=== PATIENT | male | born 1950 | race Caucasian/White ===

== ENCOUNTER 2016-11-05 18:10 | Inpatient (IN) | payer MEDICARE, OTHER ==
[~2016-11-05] VITALS: Ht 167.6 cm; Wt 65.9 kg
[2016-11-05] MEDS ORDERED: SOD CHLORIDE 0.9% 1,000 ML IV STA (19:04)
[2016-11-05 19:22] LABS: ADD SCAN DIFF NO
[2016-11-05 19:24] LABS: BASOPHIL # 0.1 10^3/ul (0.0-0.1); BASOPHILS % 0.6 % (0.0-2.0); EOSINOPHILS # 0.2 10^3/ul (0.0-0.5); EOSINOPHILS % 2.5 % (0.0-7.0); HEMATOCRIT 42.5 % (42.0-52.0); HEMOGLOBIN 14.4 g/dl (14.0-18.0); LYMPHOCYTES # 2.5 10^3/ul (0.8-2.9); LYMPHOCYTES % 28.1 % (15.0-51.0); MEAN CORPUSCULAR HEMOGLOBIN 30.1 pg (29.0-33.0); MEAN CORPUSCULAR HGB CONC 33.9 g/dl (32.0-37.0); MEAN CORPUSCULAR VOLUME 88.9 fl (82.0-101.0); MEAN PLATELET VOLUME 10.3 fl (7.4-10.4); MONOCYTES % 10.7 % (0.0-11.0); NEUTROPHIL # 5.2 10^3/ul (1.6-7.5); NEUTROPHILS % 57.8 % (39.0-77.0); PLATELET COUNT 200 10^3/UL (140-415); RED BLOOD COUNT 4.78 10^6/ul (4.70-6.10); RED CELL DISTRIBUTION WIDTH 13.2 % (11.5-14.5); WHITE BLOOD COUNT 8.9 10^3/ul (4.8-10.8)
[2016-11-05] MEDS ORDERED: ONDANSETRON 4 MG INJ IV PRN (19:30)
[2016-11-05] MEDS ORDERED: ACETAMINOPHEN 325 MG TAB PO PRN (19:30)
[2016-11-05 19:36] LABS: ALBUMIN 4.2 g/dl (3.3-4.9); CHLORIDE 99 mmol/L (97-110); POTASSIUM 3.6 mmol/L (3.5-5.1); SODIUM 138 mmol/L (135-144)
[2016-11-05 19:38] LABS: CREATININE 0.64 mg/dl (0.61-1.24)
[2016-11-05 19:39] LABS: ALANINE AMINOTRANSFERASE 97 IU/L (13-69); ALBUMIN/GLOBULIN RATIO 0.93; ALKALINE PHOSPHATASE 89 IU/L (42-121); ANION GAP 17 (8-16); ASPARTATE AMINO TRANSFERASE 53 IU/L (15-46); BILIRUBIN,INDIRECT 0.3 mg/dl (0-1.1); BILIRUBIN,TOTAL 0.3 mg/dl (0.2-1.3); BLOOD UREA NITROGEN 16 mg/dl (7-20); CARBON DIOXIDE 26 mmol/L (21-31); GLUCOSE 124 mg/dl (70-220); TOTAL PROTEIN 8.7 g/dl (6.1-8.1)
[2016-11-05 19:49] LABS: INR 0.97; PROTIME 12.9 Sec (12.2-14.2)
[2016-11-05 20:02] LABS: TROPONIN-I < 0.012 ng/ml (0.00-0.12)
[2016-11-05] MEDS ORDERED: AMLO5TAB4 PO (20:14)
[2016-11-05] MEDS ORDERED: ASPI-664 PO (20:15)
[2016-11-05] MEDS ORDERED: ASC500 PO (20:15)
[2016-11-05] MEDS ORDERED: ATOR80TA75 PO (20:15)
[2016-11-05] MEDS ORDERED: CARV6.2579 PO (20:16)
[2016-11-05] MEDS ORDERED: GABA100C14 PO (20:17)
[2016-11-05] MEDS ORDERED: DOCU-144 PO (20:17)
[2016-11-05] MEDS ORDERED: MAGN400O4 PO (20:18)
[2016-11-05] MEDS ORDERED: LACT10SO5 PO (20:18)
[2016-11-05] MEDS ORDERED: METH10TA2 PO (20:19)
[2016-11-05] MEDS ORDERED: NALO25TA PO (20:19)
[2016-11-05] MEDS ORDERED: HYDR-902 PO (20:20)
[2016-11-05] MEDS ORDERED: SENN-53 PO (20:21)
[2016-11-05] MEDS ORDERED: MULTI PO (20:21)
[2016-11-05 20:37] VITALS: BP 140/80; RESP 18
[2016-11-05 20:44] LABS: PARTIAL THROMBOPLASTIN TIME 27.1 Sec (25.0-35.0)
--- NOTE | 2016-11-05 21:10 | RADRPT ---
PROCEDURE: XR Chest. CLINICAL INDICATION: Chest pain. Abdominal pain TECHNIQUE: Portable AP upright view of the chest was obtained. COMPARISON: 06/19/2016 FINDINGS: The cardiomediastinal silhouette is within normal limits. The lungs are clear of acute infiltrates, mild diffuse interstitial changes are stable compared to the previous study. There is no evidence for pleural effusion, pneumothorax or pulmonary vascular congestion. Old healed left posterior 7th rib fractures again noted. There is no evidence of acute osseous abnormality. Calcification is agai n visible within the aorta. RPTAT:HJJR IMPRESSION: 1. Mild chronic interstitial changes of the lungs without evidence of acute intrathoracic abnormali ty. 2. Old healed posterior left seventh rib fracture. 3. Aortic atherosclerosis is present. Physician Matthew Date Time Electronically viewed and signed by Physician Matthew on 11/05/2016 21:09 JR/
--- NOTE | 2016-11-05 21:54 | ERA ---
ER Documentation Chief Complaint Date/Time DATE: 11/05/16 TIME: 21:51 Chief Complaint sent by pmd for grave disability HPI Patient is a 66-year-old male with Alzheimer's dementia, peripheral vascular disease, and hypertension who presents for failure to thrive. The patient was sent by Dr. Dale. The patient has been in and out of the hospital within the past 6 months. The patient was at home for the last 48 hours and lives alone. He was unable to take care of himself and has been soiling his bed sheets per the daughter. The daughter checked on him and found that he was not taking care of himself and he said that he needed to go to the hospital. They called Dr. Dale who told him to go for admission. The patient has had no fevers. He does take methadone. Upon review of old medical records this the patient's eighth visit to the ER since 2009. ROS All systems reviewed and are negative except as per history of present illness. Medications Home Meds Reported Medications Multivitamins* (Theragran*) 1 Tab Tab, 1 TAB PO DAILY, TAB 11/05/16 Sennosides* (Senna Lax*) 8.6 Mg Tablet, 2 TAB PO QHS, TAB 11/05/16 Hydrocodone/Acetaminophen ([place] 10-325 Tablet) 1 Each Tablet, 1 EACH PO Q4H, TAB 11/05/16 Naloxegol Oxalate (Movantik) 25 Mg Tablet, 25 MG PO DAILY, TAB 11/05/16 Methadone Hcl* (Methadone*) 10 Mg Tab, 10 MG PO DAILY, TAB 11/05/16 Magnesium Hydroxide* (Milk Of Magnesia*) 400 Mg/5 Ml Oral.susp, 30 ML PO Q24H for CONSTIPATION, ML 11/05/16 Lactulose* (Lactulose*) 10 Gm/15 Ml Solution, 10 GM PO Q24, ML 11/05/16 Gabapentin* (Gabapentin*) 100 Mg Capsule, 100 MG PO TID, #90 CAP 11/05/16 Docusate Sodium* (Colace*) 100 Mg Capsule, 100 MG PO Q12, #60 CAP 11/05/16 Carvedilol* (Carvedilol*) 6.25 Mg Tablet, 6.25 MG PO BID, #60 TAB 11/05/16 Atorvastatin* (Atorvastatin*) 80 Mg Tablet, 80 MG PO QHS, #30 TAB 11/05/16 Aspirin* (Aspirin* EC) 81 Mg Tablet.dr, 81 MG PO DAILY, TAB 11/05/16 Ascorbic Acid (Vitamin C) 500 Mg Tab, 500 MG PO DAILY, TAB 11/05/16 Amlodipine Besylate* (Norvasc*) 5 Mg Tablet, 5 MG PO DAILY, TAB 11/05/16 Allergies Allergies: Coded Allergies: No Known Drug Allergy (Verified Allergy, Unknown, 11/05/16) PMhx/Soc History of Surgery: Yes (LAK AMPUTATION 06/11) Anesthesia Reaction: No Hx Neurological Disorder: No Hx Respiratory Disorders: No Hx Cardiac Disorders: Yes (HTN,CAD, ) Hx Psychiatric Problems: Yes (ANXIETY/DEPRESSION, ) Hx Miscellaneous Medical Probl: Yes (HEP-C, MRSA) Hx Alcohol Use: Yes Hx Substance Use: Yes Hx Tobacco Use: Yes (HEAVY SMOKER) Smoking Status: Current every day smoker FmHx Family History: No diabetes Physical Exam Vitals Vital Signs Date Time Temp Pulse Resp B/P Pulse Ox O2 Delivery O2 Flow Rate FiO2 11/05/16 18:24 99.0 78 20 149/69 95 Physical Exam Const: No acute distress Head: Atraumatic Eyes: Normal Conjunctiva ENT: Normal External Ears, Nose and Mouth. Neck: Full range of motion..~ No meningismus. Resp: Clear to auscultation bilaterally Cardio: Regular rate and rhythm, no murmurs Abd: Soft, non tender, non distended. Normal bowel sounds Skin: No petechiae or rashes Back: No midline or flank tenderness Ext: Previous left lower extremity amputation Neur: Awake and alert, early dementia Psych: Normal Mood and Affect Result Diagram: 11/05/16191411/05/161914 Results 24 hrs Laboratory Tests Test 11/05/16 19:15 White Blood Count 8.910^3/ul Red Blood Count 4.7810^6/ul Hemoglobin 14.4g/dl Hematocrit 42.5% Mean Corpuscular Volume 88.9fl Mean Corpuscular Hemoglobin 30.1pg Mean Corpuscular Hemoglobin Concent 33.9g/dl Red Cell Distribution Width 13.2% Platelet Count 65610^3/UL Mean Platelet Volume 10.3fl Neutrophils % 57.8% Lymphocytes % 28.1% Monocytes % 10.7% Eosinophils % 2.5% Basophils % 0.6% Nucleated Red Blood Cells % 0.0/100WBC Neutrophils # 5.210^3/ul Lymphocytes # 2.510^3/ul Monocytes # 1.010^3/ul Eosinophils # 0.210^3/ul Basophils # 0.110^3/ul Nucleated Red Blood Cells # 0.010^3/ul Prothrombin Time 12.9Sec Prothrombin Time Ratio 1.0 INR International Normalized Ratio 0.97 Activated Partial Thromboplast Time 27.1Sec Sodium Level 138mmol/L Potassium Level 3.6mmol/L Chloride Level 99mmol/L Carbon Dioxide Level 26mmol/L Anion Gap 17 Blood Urea Nitrogen 16mg/dl Creatinine 0.64mg/dl Glucose Level 124mg/dl Calcium Level 9.0mg/dl Total Bilirubin 0.3mg/dl Direct Bilirubin 0.00mg/dl Indirect Bilirubin 0.3mg/dl Aspartate Amino Transf (AST/SGOT) 53IU/L Alanine Aminotransferase (ALT/SGPT) 97IU/L Alkaline Phosphatase 89IU/L Troponin I < 0.012ng/ml Total Protein 8.7g/dl Albumin 4.2g/dl Globulin 4.50g/dl Albumin/Globulin Ratio 0.93 Lipase 109U/L Current Medications Medications (Trade) Dose Ordered Sig/Ghada Route PRN Reason Start Time Stop Time Status Last Admin Dose Admin Sodium Chloride (NS) 1,000 ml @ 1,000 mls/hr Q1H STAT IV 11/05/16 19:04 11/05/16 20:03 DC 11/05/16 19:17 Procedures/MDM EKG read by me: Rate/Rhythm: Regular rate and rhythm at a normal rate Intervals: Normal Impression: No evidence of ischemia or arrhythmia Smoking Cessation Therapy: Pt. was lectured for greater than 3 minutes on the health risks of continued smoking and the benefits of cessation. Patient is a 66-year-old male with hypertension, Alzheimer's, and peripheral vascular disease who presents for failure to thrive. It sounds like he is unable to live on his own at this time. He will need admission to the hospital. I spoke with Dr. Navarrete who is covering for Dr. Dale. The patient will be admitted to a medical surgical bed. Laboratory studies are basically normal. EKG shows no signs of ischemia. Departure Diagnosis: Primary Impression: Acute weakness Additional Impression: Failure to thrive Qualified Code: R62.7 - Failure to thrive in adult Condition: KENDELL Abbott MD Nov 05, 2016 21:54
[2016-11-05] MEDS: DEXTROSE 5%-0.9% NACL 1,000 ML IV SCH (22:36)
[2016-11-05 23:26] VITALS: Ht 167.6 cm; Wt 65.9 kg
[2016-11-06 05:28] LABS: ADD SCAN DIFF NO
[2016-11-06 05:35] LABS: BASOPHILS % 0.6 % (0.0-2.0); EOSINOPHILS # 0.2 10^3/ul (0.0-0.5); EOSINOPHILS % 3.4 % (0.0-7.0); HEMATOCRIT 37.4 % (42.0-52.0); HEMOGLOBIN 12.7 g/dl (14.0-18.0); LYMPHOCYTES # 1.9 10^3/ul (0.8-2.9); MEAN CORPUSCULAR HEMOGLOBIN 30.1 pg (29.0-33.0); MEAN CORPUSCULAR VOLUME 88.6 fl (82.0-101.0); MEAN PLATELET VOLUME 10.1 fl (7.4-10.4); MONOCYTE # 0.8 10^3/ul (0.3-0.9); MONOCYTES % 11.9 % (0.0-11.0); NEUTROPHIL # 3.5 10^3/ul (1.6-7.5); NEUTROPHILS % 53.8 % (39.0-77.0); PLATELET COUNT 166 10^3/UL (140-415); RED BLOOD COUNT 4.22 10^6/ul (4.70-6.10); RED CELL DISTRIBUTION WIDTH 13.3 % (11.5-14.5); WHITE BLOOD COUNT 6.5 10^3/ul (4.8-10.8)
[2016-11-06 05:56] LABS: CALCIUM 8.4 mg/dl (8.4-10.2); CREATININE 0.57 mg/dl (0.61-1.24)
[2016-11-06 07:34] VITALS: BP 187/92; RESP 20
[2016-11-06] MEDS: DEXTROSE 5%-0.9% NACL 1,000 ML IV SCH (08:52)
[2016-11-06] MEDS ORDERED: HYDROCODONE/APAP (10/325) TAB PO PRN (09:30)
[2016-11-06 09:48] LABS: HAAIG REFLEX REFLEX FILED
[2016-11-06] MEDS: MAGNESIUM HYDROXIDE 30ML CUP PO SCH (11:04)
[2016-11-06 12:06] LABS: HEPATITIS B CORE ANTIBODY REACTIVE (NEGATIVE)
[2016-11-06] MEDS: METHADONE 10 MG TAB PO SCH (12:28)
[2016-11-06] MEDS: GABAPENTIN 100 MG CAP PO SCH ×2 (12:28→21:00)
[2016-11-06 19:25] VITALS: BP 132/78; RESP 20
[2016-11-06] MEDS: SENNA TAB PO SCH (21:00)
[2016-11-06] MEDS: ATORVASTATIN 80 MG TAB PO SCH (21:00)
[2016-11-06] MEDS: DOCUSATE SODIUM 100 MG CAP PO SCH (21:00)
[2016-11-07] MEDS: PANTOPRAZOLE (EC) 40 MG TAB PO SCH (05:54)
[2016-11-07 06:10] LABS: ADD SCAN DIFF NO
[2016-11-07 06:36] LABS: BASOPHILS % 0.5 % (0.0-2.0); EOSINOPHILS # 0.3 10^3/ul (0.0-0.5); EOSINOPHILS % 3.2 % (0.0-7.0); HEMATOCRIT 40.6 % (42.0-52.0); HEMOGLOBIN 13.7 g/dl (14.0-18.0); LYMPHOCYTES # 1.9 10^3/ul (0.8-2.9); LYMPHOCYTES % 21.4 % (15.0-51.0); MEAN CORPUSCULAR HEMOGLOBIN 30.1 pg (29.0-33.0); MEAN CORPUSCULAR HGB CONC 33.7 g/dl (32.0-37.0); MEAN CORPUSCULAR VOLUME 89.2 fl (82.0-101.0); MEAN PLATELET VOLUME 10.9 fl (7.4-10.4); MONOCYTE # 0.9 10^3/ul (0.3-0.9); MONOCYTES % 10.6 % (0.0-11.0); NEUTROPHIL # 5.5 10^3/ul (1.6-7.5); PLATELET COUNT 171 10^3/UL (140-415); RED BLOOD COUNT 4.55 10^6/ul (4.70-6.10); RED CELL DISTRIBUTION WIDTH 13.2 % (11.5-14.5); WHITE BLOOD COUNT 8.7 10^3/ul (4.8-10.8)
[2016-11-07 06:40] LABS: CALCIUM 9.3 mg/dl (8.4-10.2); CREATININE 0.61 mg/dl (0.61-1.24); MAGNESIUM 1.7 mg/dl (1.7-2.5); PHOSPHORUS 5.1 mg/dl (2.5-4.9); POTASSIUM 4.6 mmol/L (3.5-5.1)
[2016-11-07 07:18] VITALS: BP 165/87; RESP 18
--- NOTE | 2016-11-07 07:23 | HP ---
DATE OF ADMISSION: 11/05/2016 CHIEF COMPLAINT: Grave disability, failure to thrive. 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 The patient states he was l iving at home by himself, but was unable to do activities of daily living. The patient has noted to have a decline in his status. As a result, he was brought in to the emergency room for evaluation. Upon arrival, patient had a chest x-ray performed which showed interstitial changes of the lungs w ithout an acute process, old fracture of left 7th rib. The patient had laboratory data drawn. In [facility] emergency room, the patient was placed on IV hydration and admitted to medical/surgery. Overnigh t, the patient has been stable. There have been no reports of hemoptysis, hematemesis or hematochez ia. No chest pain. No dysuria or hematuria. PAST MEDICAL HISTORY: As stated above, history of hepatitis C, history of hypertension, history of coronary artery disease, history of anxiety and depression, history of dementia. PAST SURGICAL HISTORY: Left above-knee amputation. FAMILY HISTORY: Noncontributory. SOCIAL HISTORY: He does not actively drink, smoke or do drugs. MEDICATIONS: The patient's medications have been reviewed and reconciled. ALLERGIES: NO KNOWN DRUG ALLERGIES. REVIEW OF SYSTEMS: A 14-point review of systems was conducted. Pertinent positives stated in the H PI, otherwise negative. PHYSICAL EXAMINATION: VITAL SIGNS: Blood pressure is 180/90, respirations 20, pulse 67, temperature 97.8. HEENT: Head is normocephalic. Pupils are reactive to light. NECK: Supple. HEART: Regular rate. LUNGS: Show diminished breath sounds at the bases. ABDOMEN: Soft, nontender to palpation. No rebound or guarding. EXTREMITIES: Negative for clubbing, cyanosis. No edema on the right leg. Left AK is noted. NEUROLOGIC: No focal deficits. DERMATOLOGIC: No rashes. MUSCULOSKELETAL: No joint effusions. LABORATORY DATA: Shows a white count of 6.5, hemoglobin 12.7, hematocrit 37.4, platelet count 166. Sodium 137, potassium 4.0, BUN 11, creatinine 0.57. ASSESSMENT AND PLAN: This is a 66-year-old male who presents with: 1. Grave disability, failure to thrive. Plan at this point is to have a physical therapy evaluatio n. We will also have a social service evaluation for possible fci facility placement. We will monitor the patient closely. 2. Hypertension. Blood pressure currently elevated. Plan is to discontinue IV fluids. We will re sume blood pressure medications and monitor. 3. History of coronary artery disease. Continue medical management. 4. History of hepatitis C. The patient has mild transaminitis. We will check a hepatitis panel an d monitor. 5. History of methadone dependence. We will continue methadone. 6. Chronic pain syndrome. Continue current pain regimen. 7. History of dementia, mild. Continue to monitor. 8. Opiate-induced constipation. Continue Movantik. 9. Neuropathy. Continue Neurontin. 10. Gastrointestinal and deep venous thrombosis prophylaxis. We will place the patient on proton p ump inhibitor and Lovenox. 11. Mild anemia, likely dilutional. We will continue to monitor. Please note I spent up to 25 minutes in [id number] time with the patient. The patient is currentl y a DNR. Dictated By: MISSAEL GUERRERO/ELLIS Conf#: [id number] DID#: [id number]
[2016-11-07] MEDS: MULTIVITAMINS THERAPEUTIC TAB PO SCH (08:49)
[2016-11-07] MEDS: ASPIRIN (EC) 81 MG TAB PO SCH (08:49)
[2016-11-07] MEDS: DOCUSATE SODIUM 100 MG CAP PO SCH ×2 (08:49→20:46)
[2016-11-07] MEDS: MAGNESIUM HYDROXIDE 30ML CUP PO SCH (08:49)
[2016-11-07] MEDS: AMLODIPINE 5 MG TAB PO SCH (08:50)
[2016-11-07] MEDS: METHADONE 10 MG TAB PO SCH (08:50)
[2016-11-07] MEDS: ASCORBIC ACID 500 MG TAB PO SCH (08:50)
[2016-11-07] MEDS: GABAPENTIN 100 MG CAP PO SCH ×3 (08:50→20:46)
[2016-11-07] MEDS ORDERED: METHADONE 10 MG TAB PO SCH (09:00)
[2016-11-07] MEDS: ENOXAPARIN 40 MG/0.4 ML SYG SC SCH (09:11)
--- NOTE | 2016-11-07 10:14 | PN ---
DATE: 11/07/2016 SUBJECTIVE: The patient is stable. No acute events overnight. The patient informed me today that he takes 120 mg of methadone. The patient's reconciliation only had a 10-mg dose. I informed the p atient that I will discuss with his previous facility and confirm that dose. No other events noted. OBJECTIVE: VITAL SIGNS: Blood pressure 165/87, respirations 18, pulse 65, temperature 97.9. HEENT: Head is normocephalic. NECK: Supple. HEART: Regular rate. LUNGS: Showed diminished breath sounds at the base. ABDOMEN: Soft, nontender to palpation. No rebound or guarding. EXTREMITIES: Negative for clubbing, cyanosis, or edema on the right leg. Left AKA is noted. DERMATOLOGIC: No rashes. MUSCULOSKELETAL: Have no joint effusion. NEUROLOGIC: No focal deficits. MEDICATIONS: The patient's medication were reviewed. LABORATORY DATA: Shows sodium 136, potassium 4.6, chloride 103, BUN 13, creatinine 0.61, phosphorus 5.1. White count 8.7, hemoglobin 13.7, hematocrit 40.6, platelet count is 171. Patient's MRSA of the nares is noted. ASSESSMENT AND PLAN: 1. Grave disability. The patient is currently receiving physical therapy. Will place a social ser vice evaluation for possible SNF placement. Will continue to monitor closely. 2. Hypertension. Blood pressure is elevated. Will continue the current blood pressure medications and adjust as needed. 3. Chronic pain syndrome/methadone dependence. The patient states that he is on 120 mg of methadon e daily. Will confirm dose with [facility] and resume. 4. History of coronary artery disease. Continue medical management. 5. Hepatitis C. Continue to monitor. 6. Mild transaminitis, likely secondary to hepatitis C. Will continue to monitor. Consider outpat ient evaluation for treatment. 7. Mild dementia. Continue to monitor. 8. Opiate-induced constipation. Continue the current bowel regimen. 9. Neuropathy. Continue Neurontin. 10. Mild anemia, likely dilutional. Continue to monitor. 11. Gastrointestinal and deep venous thrombosis prophylaxis. Continue proton pump inhibitor and Lo venox. DISPOSITION: Anticipate transfer to a intermediate facility, [facility], in the next 1 to 2 days. Dictated By: MISSAEL GUERRERO/ELLIS Conf#: [id number] [facility]#: [id number]
[2016-11-07 10:39] VITALS: BP 167/87
[2016-11-07] MEDS ORDERED: METHADONE 10 MG TAB PO ONE (15:30)
[2016-11-07] MEDS: MUPIROCIN 2% 22 GM OINT TOP SCH ×2 (18:38→20:47)
[2016-11-07 20:00] VITALS: BP 130/71; RESP 20
[2016-11-07] MEDS: SENNA TAB PO SCH (20:46)
[2016-11-07] MEDS: ATORVASTATIN 80 MG TAB PO SCH (20:46)
[2016-11-08] MEDS: PANTOPRAZOLE (EC) 40 MG TAB PO SCH (05:25)
[2016-11-08 07:27] VITALS: BP 115/68; RESP 20
[2016-11-08] MEDS: MULTIVITAMINS THERAPEUTIC TAB PO SCH (09:24)
[2016-11-08] MEDS: DOCUSATE SODIUM 100 MG CAP PO SCH ×2 (09:24→20:25)
[2016-11-08] MEDS: ASCORBIC ACID 500 MG TAB PO SCH (09:25)
[2016-11-08] MEDS: AMLODIPINE 5 MG TAB PO SCH (09:25)
[2016-11-08] MEDS: GABAPENTIN 100 MG CAP PO SCH ×3 (09:25→20:25)
[2016-11-08] MEDS: ASPIRIN (EC) 81 MG TAB PO SCH (09:25)
[2016-11-08] MEDS: METHADONE 10 MG TAB PO SCH (09:27)
[2016-11-08] MEDS: MUPIROCIN 2% 22 GM OINT TOP SCH ×2 (09:31→20:26)
[2016-11-08] MEDS: ENOXAPARIN 40 MG/0.4 ML SYG SC SCH (09:38)
[2016-11-08] MEDS: MAGNESIUM HYDROXIDE 30ML CUP PO SCH (09:40)
--- NOTE | 2016-11-08 12:49 | PN ---
Date/Time of Note Date/Time of Note DATE: 11/08/16 TIME: 12:49 Assessment/Plan VTE Prophylaxis VTE Prophylaxis Intervention: other Lines/Catheters [facility]from [facility] Saline Lock Urinary Cath still in place: No Assessment/Plan Assessment/Plan 1. Grave disability. The patient is currently receiving physical therapy. Will place a social service evaluation for possible SNF placement. Will continue to monitor closely. 2. Hypertension. Blood pressure is elevated. Will continue the current blood pressure medications and adjust as needed. 3. Chronic pain syndrome/methadone dependence. The patient states that he is on 120 mg of methadone daily. Will confirm dose with [facility] and resume. 4. History of coronary artery disease. Continue medical management. 5. Hepatitis C. Continue to monitor. 6. Mild transaminitis, likely secondary to hepatitis C. Will continue to monitor. Consider outpatient evaluation for treatment. 7. Mild dementia. Continue to monitor. 8. Opiate-induced constipation. Continue the current bowel regimen. 9. Neuropathy. Continue Neurontin. 10. Mild anemia, likely dilutional. Continue to monitor. 11. Gastrointestinal and deep venous thrombosis prophylaxis. Continue proton pump inhibitor and Lovenox. Subjective 24 Hr Interval Summary Free Text/Dictation SUBJECTIVE: The patient is stable. No acute events overnight. The patient informed me today that he takes 120 mg of methadone. The patient's reconciliation only had a 10-mg dose. I informed the patient that I will discuss with his previous facility and confirm that dose. No other events noted. OBJECTIVE: HEENT: Head is normocephalic. NECK: Supple. HEART: Regular rate. LUNGS: Showed diminished breath sounds at the base. ABDOMEN: Soft, nontender to palpation. No rebound or guarding. EXTREMITIES: Negative for clubbing, cyanosis, or edema on the right leg. Left AKA is noted. DERMATOLOGIC: No rashes. MUSCULOSKELETAL: Have no joint effusion. NEUROLOGIC: No focal deficits. MEDICATIONS: The patient's medication were reviewed. Exam/Review of Systems Vital Signs Vitals Vital Signs Date Time Temp Pulse Resp B/P Pulse Ox O2 Delivery O2 Flow Rate FiO2 11/08/16 07:27 97.8 67 20 115/68 93 Intake and Output 11/07/16 11/07/16 11/08/16 15:00 23:00 07:00 Intake Total 1600 ml 400 ml Output Total 1600 ml 700 ml Balance 0 ml -300 ml Results Result Diagram: 11/07/1651411/07/1615 Medications Medications Current Medications Amlodipine Besylate (Norvasc) 5 mg DAILY PO Last administered on 11/08/16 09: 25; Admin Dose 5 MG; Start 11/07/16 at 09:00 Ascorbic Acid (Vitamin C) 500 mg DAILY PO Last administered on 11/08/16 09:25 ; Admin Dose 500 MG; Start 11/07/16 at 09:00 Aspirin (Halfprin) 81 mg DAILY PO Last administered on 11/08/16 09:25; Admin Dose 81 MG; Start 11/07/16 at 09:00 Atorvastatin Calcium (Lipitor) 80 mg QHS PO Last administered on 11/07/16 20: 46; Admin Dose 80 MG; Start 11/06/16 at 21:00 Carvedilol (Coreg) 6.25 mg BID PO Last administered on 11/08/16 09:26; Admin Dose 6.25 MG; Start 11/06/16 at 21:00 Docusate Sodium (Colace) 100 mg Q12 PO Last administered on 11/08/16 09:24; Admin Dose 100 MG; Start 11/06/16 at 21:00 Gabapentin (Neurontin) 100 mg TID PO Last administered on 11/08/16 09:25; Admin Dose 100 MG; Start 11/06/16 at 13:00 Acetaminophen/ Hydrocodone Bitart ([place] (10/325)) 1 tab Q4H PRN PO PRN; Start 11/06/16 at 09:30 Magnesium Hydroxide (Milk Of Mag) 30 ml Q24H PO Last administered on 11/08/16 09:40; Admin Dose 30 ML; Start 11/06/16 at 09:30 Multivitamins Therapeutic (Theragran) 1 tab DAILY PO Last administered on 09:24; Admin Dose 1 TAB; Start 11/07/16 at 09:00 Senna (Senokot) 2 tab QHS PO Last administered on 11/07/16 20:46; Admin Dose 2 TAB; Start 11/06/16 at 21:00 Enoxaparin Sodium (Lovenox) 40 mg DAILY SC Last administered on 11/08/16 09:38 ; Admin Dose 40 MG; Start 11/07/16 at 09:00 Pantoprazole (Protonix Tab) 40 mg DAILY@06 PO Last administered on 11/08/16 05 :25; Admin Dose 40 MG; Start 11/07/16 at 06:00 Mupirocin (Bactroban) 1 applic BID TOP Last administered on 11/08/16 09:31; Admin Dose 1 APPLIC; Start 11/07/16 at 10:00 Methadone HCl (Methadone) 110 mg DAILY PO Last administered on 11/08/16 09:27 ; Admin Dose 110 MG; Start 11/08/16 at 09:00 Hydralazine HCl (Apresoline) 25 mg Q6 PRN PO ELEVATED BLOOD PRESSURE; Start at 15:30 VENTURA RUCKER DO Nov 08, 2016 12:49
[2016-11-08 19:20] VITALS: BP 125/75; RESP 20
[2016-11-08] MEDS: SENNA TAB PO SCH (20:25)
[2016-11-08] MEDS: ATORVASTATIN 80 MG TAB PO SCH (20:25)
[2016-11-09] MEDS: PANTOPRAZOLE (EC) 40 MG TAB PO SCH (05:53)
[2016-11-09] MEDS: MAGNESIUM HYDROXIDE 30ML CUP PO SCH (05:53)
[2016-11-09 07:27] VITALS: BP 124/74; RESP 18
[2016-11-09] MEDS: DOCUSATE SODIUM 100 MG CAP PO SCH ×2 (08:26→20:23)
[2016-11-09] MEDS: MULTIVITAMINS THERAPEUTIC TAB PO SCH (08:26)
[2016-11-09] MEDS: ASCORBIC ACID 500 MG TAB PO SCH (08:26)
[2016-11-09] MEDS: GABAPENTIN 100 MG CAP PO SCH ×3 (08:26→20:23)
[2016-11-09] MEDS: AMLODIPINE 5 MG TAB PO SCH (08:27)
[2016-11-09] MEDS: ASPIRIN (EC) 81 MG TAB PO SCH (08:28)
[2016-11-09] MEDS: METHADONE 10 MG TAB PO SCH (08:30)
[2016-11-09] MEDS: MUPIROCIN 2% 22 GM OINT TOP SCH ×2 (08:32→20:22)
[2016-11-09] MEDS: ENOXAPARIN 40 MG/0.4 ML SYG SC SCH (08:43)
--- NOTE | 2016-11-09 10:33 | PN ---
Date/Time of Note Date/Time of Note DATE: 11/09/16 TIME: 10:32 Assessment/Plan VTE Prophylaxis VTE Prophylaxis Intervention: other Lines/Catheters IV Catheter Type (from [facility]): Saline Lock Urinary Cath still in place: No Assessment/Plan Assessment/Plan 1. Grave disability. The patient is currently receiving physical therapy. will need SNF placement. Will continue to monitor closely. 2. Hypertension. Blood pressure is elevated. Will continue the current blood pressure medications and adjust as needed. 3. Chronic pain syndrome/methadone dependence. The patient states that he is on 120 mg of methadone daily. 4. History of coronary artery disease. Continue medical management. 5. Hepatitis C. Continue to monitor. 6. Mild transaminitis, likely secondary to hepatitis C. Will continue to monitor. Consider outpatient evaluation for treatment. 7. Mild dementia. Continue to monitor. 8. Opiate-induced constipation. Continue the current bowel regimen. 9. Neuropathy. Continue Neurontin. 10. Mild anemia, likely dilutional. Continue to monitor. 11. constipation Subjective 24 Hr Interval Summary Free Text/Dictation SUBJECTIVE: The patient is stable. No acute events overnight. complaining of abdominal pain and constipation OBJECTIVE: HEENT: Head is normocephalic. NECK: Supple. HEART: Regular rate. LUNGS: Showed diminished breath sounds at the base. ABDOMEN: Soft, nontender to palpation. No rebound or guarding. EXTREMITIES: Negative for clubbing, cyanosis, or edema on the right leg. Left AKA is noted. DERMATOLOGIC: No rashes. MUSCULOSKELETAL: Have no joint effusion. NEUROLOGIC: No focal deficits. MEDICATIONS: The patient's medication were reviewed. Exam/Review of Systems Vital Signs Vitals Vital Signs Date Time Temp Pulse Resp B/P Pulse Ox O2 Delivery O2 Flow Rate FiO2 11/09/16 07:27 97.6 88 18 124/74 97 Intake and Output 11/08/16 11/08/16 11/09/16 15:00 23:00 07:00 Intake Total 1860 ml 720 ml Output Total 850 ml 1000 ml Balance 1010 ml -280 ml Results Result Diagram: 11/07/16 0515 11/07/16 0515 Medications Medications Current Medications Amlodipine Besylate (Norvasc) 5 mg DAILY PO Last administered on 11/09/16t 08: 27; Admin Dose 5 MG; Start 11/07/16 at 09:00 Ascorbic Acid (Vitamin C) 500 mg DAILY PO Last administered on 11/09/16 08:26 ; Admin Dose 500 MG; Start 11/07/16 at 09:00 Aspirin (Halfprin) 81 mg DAILY PO Last administered on 11/09/16 08:28; Admin Dose 81 MG; Start 11/07/16 at 09:00 Atorvastatin Calcium (Lipitor) 80 mg QHS PO Last administered on 11/08/16 20: 25; Admin Dose 80 MG; Start 11/06/16 at 21:00 Carvedilol (Coreg) 6.25 mg BID PO Last administered on 11/09/16 08:27; Admin Dose 6.25 MG; Start 11/06/16 at 21:00 Docusate Sodium (Colace) 100 mg Q12 PO Last administered on 11/09/16 08:26; Admin Dose 100 MG; Start 11/06/16 at 21:00 Gabapentin (Neurontin) 100 mg TID PO Last administered on 11/09/16 08:26; Admin Dose 100 MG; Start 11/06/16 at 13:00 Acetaminophen/ Hydrocodone Bitart ([place] (10/325)) 1 tab Q4H PRN PO PRN; Start 11/06/16 at 09:30 Magnesium Hydroxide (Milk Of Mag) 30 ml Q24H PO Last administered on 11/09/16 05:53; Admin Dose 30 ML; Start 11/06/16 at 09:30 Multivitamins Therapeutic (Theragran) 1 tab DAILY PO Last administered on 08:26; Admin Dose 1 TAB; Start 11/07/16 at 09:00 Senna (Senokot) 2 tab QHS PO Last administered on 11/08/16 20:25; Admin Dose 2 TAB; Start 11/06/16 at 21:00 Enoxaparin Sodium (Lovenox) 40 mg DAILY SC Last administered on 11/09/16 08:43 ; Admin Dose 40 MG; Start 11/07/16 at 09:00 Pantoprazole (Protonix Tab) 40 mg DAILY@06 PO Last administered on 11/09/16 05 :53; Admin Dose 40 MG; Start 11/07/16 at 06:00 Mupirocin (Bactroban) 1 applic BID TOP Last administered on 11/09/16 08:32; Admin Dose 1 APPLIC; Start 11/07/16 at 10:00 Methadone HCl (Methadone) 110 mg DAILY PO Last administered on 11/09/16 08:30 ; Admin Dose 110 MG; Start 11/08/16 at 09:00 Hydralazine HCl (Apresoline) 25 mg Q6 PRN PO ELEVATED BLOOD PRESSURE; Start at 15:30 VENTURA RUCKER DO Nov 09, 2016 10:33
[2016-11-09] MEDS ORDERED: MAGNESIUM CITRATE 300 ML BTL PO ONE (11:30)
[2016-11-09 19:00] VITALS: BP 135/67; RESP 18
[2016-11-09] MEDS: SENNA TAB PO SCH (20:23)
[2016-11-09] MEDS: ATORVASTATIN 80 MG TAB PO SCH (20:23)
[2016-11-10] MEDS: PANTOPRAZOLE (EC) 40 MG TAB PO SCH (05:48)
[2016-11-10 07:19] VITALS: BP 160/78; RESP 20
[2016-11-10] MEDS: MUPIROCIN 2% 22 GM OINT TOP SCH ×3 (09:00→21:51)
[2016-11-10] MEDS: ASCORBIC ACID 500 MG TAB PO SCH (09:04)
[2016-11-10] MEDS: ASPIRIN (EC) 81 MG TAB PO SCH (09:05)
[2016-11-10] MEDS: DOCUSATE SODIUM 100 MG CAP PO SCH ×2 (09:06→21:50)
[2016-11-10] MEDS: MULTIVITAMINS THERAPEUTIC TAB PO SCH (09:06)
[2016-11-10] MEDS: AMLODIPINE 5 MG TAB PO SCH (09:06)
[2016-11-10] MEDS: GABAPENTIN 100 MG CAP PO SCH ×3 (09:06→21:50)
[2016-11-10] MEDS: MAGNESIUM HYDROXIDE 30ML CUP PO SCH (09:06)
[2016-11-10] MEDS: METHADONE 10 MG TAB PO SCH (09:07)
[2016-11-10] MEDS: ENOXAPARIN 40 MG/0.4 ML SYG SC SCH (09:43)
[2016-11-10 12:00] VITALS: BP 122/66; PULSE 73; RESP 18
--- NOTE | 2016-11-10 15:10 | PN ---
DATE: 11/10/2016 SUBJECTIVE: The patient seen currently with no complaints. He stated that he had a large bowel mov ement after having severe constipation. Case discussed in detail with case coordinator regarding josiah ent. The patient again presented to the hospital after at home he could not care for himself. Dorisi n, the patient does have left AKA. I have spoken also with the daughter who helps with the decision making process for the patient. Her name is Nasreen. PHYSICAL EXAMINATION: VITAL SIGNS: Temperature 97.9, pulse is 64, respirations 20, blood pressure fluctuates from the 115 to 160 over 60 to 70, saturation 95% on room air. GENERAL: The patient is in no acute distress. HEENT: Normocephalic, atraumatic. The patient is pale. CARDIOVASCULAR: S1, S2, regular rate and rhythm. LUNGS: Clear. ABDOMEN: Soft, nontender. EXTREMITIES: Left AKA. Right lower extremity positive peripheral vascular disease, but no obvious wounds noted. LABORATORIES: Last labs done on November 08 show a white count of 8.7, hemoglobin 13.7, hematocrit 4 1, platelet count 171, neutrophils 64%, lymphocytes 21%. Chemistry: Sodium 136, potassium 4.6, chl oride 103, bicarbonate 27, BUN 13, creatinine 0.61, glucose of 94. Magnesium is 1.7. LFTs on admis terry were slightly high, AST 63, ALT 97, with an alkaline phosphatase of 89. Troponin was negative. Hepatitis C. was positive. Hepatitis B, he is reactive to hepatitis B antibody. MRSA screening o f the nares is positive. MEDICATIONS: Include: 1. Methadone 110 mg daily. 2. Hydralazine 25 p.o. q.6 hours p.r.n. 3. Bactroban ointment to the nares b.i.d. 4. Norvasc 5 mg daily. 5. Vitamin C 500 mg daily. 6. Aspirin 81 mg daily. 7. Multivitamin 1 tablet daily. 8. Lovenox 40 mg subcutaneous daily. 9. Protonix 40 mg daily. 10. Lipitor 80 mg at bedtime. 11. Coreg 6.25 b.i.d. 12. Colace 100 q.12h. 13. Senna 1 to 2 tabs at bedtime. 14. Neurontin 100 mg t.i.d. 15. [place] 10/325 q.4h. p.r.n. 16. Milk of magnesia daily. ASSESSMENT AND PLAN: This is a very unfortunate 66-year-old debilitated male with history of peripheral vascular disease status post left AKA, chronic pain syndrome, on methadone, hypertens ion, neuropathy, mild dementia, also anemia who presents gravely disabled, unable to care for self. 1. Grave disability. Physical therapy evaluates the patient. Out of bed activity as tolerated. A waiting placement either in the assisted living or senior care facility. Case discussed with ca se management. 2. Hepatitis C with transaminitis. Outpatient hepatology consult is recommended to receive treatme nt with possible Harvoni. Will monitor LFTs periodically. 3. Hypertension, currently on amlodipine 5 mg daily, Coreg 6.25 b.i.d. Continue the same type of m edication as needed. Continue p.r.n. hydralazine. 4. Peripheral vascular disease. Continue aspirin 81 mg daily. Advised on smoking cessation. 5. Chronic pain syndrome, on methadone 110 mg daily. Continue the same. 6. Constipation, likely due to opioid use. May benefit from Movantik. Continue laxatives for now. 7. Anemia, likely dilutional, observe. 8. Monitor patient's nutrition status. 9. Continue gastrointestinal prophylaxis and deep venous thrombosis prophylaxis. We will follow. Dictated By: ALLI KIRBY/ELLIS Conf#: [id number] DID#: [id number]
[2016-11-10 19:30] VITALS: BP 132/70; RESP 16
[2016-11-10] MEDS: SENNA TAB PO SCH (21:48)
[2016-11-10] MEDS: ATORVASTATIN 80 MG TAB PO SCH (21:49)
[2016-11-11] MEDS: PANTOPRAZOLE (EC) 40 MG TAB PO SCH (05:59)
[2016-11-11 07:23] VITALS: BP 152/75; RESP 18
[2016-11-11] MEDS: MULTIVITAMINS THERAPEUTIC TAB PO SCH (09:12)
[2016-11-11] MEDS: ASPIRIN (EC) 81 MG TAB PO SCH (09:13)
[2016-11-11] MEDS: ASCORBIC ACID 500 MG TAB PO SCH (09:13)
[2016-11-11] MEDS: METHADONE 10 MG TAB PO SCH (09:14)
[2016-11-11] MEDS: GABAPENTIN 100 MG CAP PO SCH ×3 (09:14→20:52)
[2016-11-11] MEDS: DOCUSATE SODIUM 100 MG CAP PO SCH ×2 (09:14→20:52)
[2016-11-11] MEDS: MUPIROCIN 2% 22 GM OINT TOP SCH ×2 (09:15→20:54)
[2016-11-11] MEDS: MAGNESIUM HYDROXIDE 30ML CUP PO SCH (09:15)
[2016-11-11] MEDS: AMLODIPINE 5 MG TAB PO SCH (09:15)
[2016-11-11] MEDS: ENOXAPARIN 40 MG/0.4 ML SYG SC SCH (09:29)
[2016-11-11 11:33] VITALS: BP 144/73
--- NOTE | 2016-11-11 12:14 | PN ---
DATE: 11/11/2016 SUBJECTIVE: The patient seen at bedside, currently with no complaints, states that still he does no t have regular bowel movements. Case discussed with upper caser as placement is pending, as patien t cannot care for self at home. PHYSICAL EXAMINATION: VITAL SIGNS: Temperature 98, pulse 69, respirations 18, blood pressure 152/75, saturations 97% on r oom air. GENERAL: The patient is in no acute distress. The patient is pale. CARDIOVASCULAR: Positive S1 and S2, regular rate and rhythm. LUNGS: Clear bilaterally. ABDOMEN: Soft, nontender. EXTREMITIES: Left AKA. No apparent wound felt in the right lower extremity. LABORATORIES: No new labs today. Labs up until November 07 were all reviewed. Hepatitis C positive . MEDICATIONS: 1. Methadone 110 mg daily. 2. Hydralazine 25 mg q.6h. p.r.n. 3. Bactroban b.i.d. 4. Norvasc 5 mg daily. 5. Vitamin C 500 mg daily. 6. Aspirin 81 mg daily. 7. Multivitamin 1 tablet daily. 8. Lovenox 40 mg subcutaneous daily. 9. Protonix 40 mg daily. 10. Lipitor 80 mg at bedtime. 11. Coreg 6.25 b.i.d. 12. Colace 100 q.12 hours. 13. Senna 2 tabs at bedtime. 14. Neurontin 100 t.i.d. 15. [place] p.r.n. 16. Milk of magnesia p.r.n. ASSESSMENT AND PLAN: This is a 66-year-old debilitated male with history of peripheral va scular disease status post left AKA and nicotine dependency, still smokes heavily. Also has history of chronic pain syndrome, on methadone. Also history of hypertension, neuropathy, mild dementia, a nemia who presents with grave disability, unable to care for self. 1. Grave disability with left AKA and mild cognitive impairment. The patient needs higher level of care. Awaiting placement either in the assisted living or senior care facility. manager of planning is aware. 2. Hepatitis C with transaminitis Outpatient followup with hepatology to possibly get treatment. 3. Hypertension. May increase amlodipine to b.i.d. dosing. Observe. Continue Coreg and p.r.n. hy dralazine. 4. Peripheral vascular disease, on aspirin and statins. Smoking cessation is advised. 5. Chronic pain syndrome, on methadone 110 mg daily. 6. Constipation related to opioid use. We will add more stool softeners such as MiraLax. We may p rescribe him Movantik opioid-induced constipation. 7. Anemia. Observe, stable, likely partly dilutional. 8. Monitor the patient's nutrition status. 9. Continue deep vein thrombosis prophylaxis and gastrointestinal prophylaxis. We will follow. Dictated By: ALLI KIRBY/ELLIS Conf#: [id number] DID#: [id number]
[2016-11-11] MEDS: POLYETHYLENE GLYCOL 17 GM PACKET PO SCH ×2 (12:54→13:10)
[2016-11-11 19:58] VITALS: BP 128/68; RESP 18
[2016-11-11] MEDS: SENNA TAB PO SCH (20:51)
[2016-11-11] MEDS: ATORVASTATIN 80 MG TAB PO SCH (20:52)
[2016-11-12] MEDS: PANTOPRAZOLE (EC) 40 MG TAB PO SCH (05:29)
[2016-11-12 07:22] VITALS: BP 153/72; RESP 16
[2016-11-12] MEDS: GABAPENTIN 100 MG CAP PO SCH ×2 (09:32→12:34)
[2016-11-12] MEDS: MAGNESIUM HYDROXIDE 30ML CUP PO SCH (09:32)
[2016-11-12] MEDS: DOCUSATE SODIUM 100 MG CAP PO SCH (09:33)
[2016-11-12] MEDS: MULTIVITAMINS THERAPEUTIC TAB PO SCH (09:33)
[2016-11-12] MEDS: ASCORBIC ACID 500 MG TAB PO SCH (09:33)
[2016-11-12] MEDS: ASPIRIN (EC) 81 MG TAB PO SCH (09:33)
[2016-11-12] MEDS: AMLODIPINE 5 MG TAB PO SCH (09:33)
[2016-11-12] MEDS: POLYETHYLENE GLYCOL 17 GM PACKET PO SCH (09:34)
[2016-11-12] MEDS: MUPIROCIN 2% 22 GM OINT TOP SCH (09:39)
[2016-11-12] MEDS: METHADONE 10 MG TAB PO SCH (09:41)
[2016-11-12] MEDS: ENOXAPARIN 40 MG/0.4 ML SYG SC SCH (09:55)
--- NOTE | 2016-11-12 16:07 | PN ---
DATE: 11/12/2016 SUBJECTIVE: The patient is seen. The patient with no complaints, lying in bed comfortably. Case d iscussed with hospice case manager regarding placement. OBJECTIVE: VITAL SIGNS: Blood pressure is 152/72, earlier was 128/68, pulse 61, respirations 16, temperature 9 8, saturation 95% on room air. GENERAL: No acute distress. HEENT: Normocephalic, atraumatic. The patient is pale. CARDIOVASCULAR: S1, S2, regular rate. LUNGS: Clear. ABDOMEN: Soft, nontender. EXTREMITIES: Left AKA. Right lower extremity chronic skin changes secondary to PVD. LABORATORY DATA: MRSA screening on admission was positive, likely colonization. MEDICATIONS: 1. MiraLax 17 grams daily. 2. Methadone 110 mg daily. 3. Hydralazine 25 q. 6 p.r.n. 4. Bactroban b.i.d. 5. Norvasc 5 mg daily. 6. Vitamin C 500 mg daily. 7. Aspirin 81 mg daily. 8. Multivitamin 1 tab daily. 9. Lovenox 40 mg subcutaneous daily. 10. Protonix 40 mg daily. 11. Lipitor 80 mg at bedtime. 12. Coreg 6.25 b.i.d. 13. Colace 100 q. 12. 14. Senna 2 tabs at bedtime. 15. Neurontin 100 t.i.d. 16. [place] p.r.n. 17. Milk of magnesia p.r.n. 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 1. Grave disability with left AKA with mild cognitive impairment. The patient will need higher lev el of care as he cannot take care of himself, awaiting placement. 2. Hepatitis C with transaminitis. Outpatient followup with hepatology. Check LFTs intermittently . 3. Hypertension. Observe. May increase his Amlodipine. Continue Coreg and p.r.n. hydralazine. 4. Peripheral vascular disease on aspirin and statin. 5. Nicotine dependence. Smoking cessation is definitely advised. 6. Constipation. Continue stool softeners. Case discussed with nursing staff. 7. Anemia, stable. Follow up hemoglobin and hematocrit. 8. Monitor patient's nutritional status. 9. Case discussed with hospice case manager regarding placement. We will follow. 10. Continue Bactroban ointment for MRSA colonization of the nares. We will follow. Dictated By: ALLI KIRBY/ELLIS Conf#: [id number] DID#: [id number]
--- NOTE | 2016-11-12 16:38 | PDOCDIS ---
Discharge Instructions CONDITION Patient Condition: Stable HOME CARE INSTRUCTIONS: Special Diet: No added salt ACTIVITY: Activity Restrictions: Slowly Increase Activity FOLLOW UP/APPOINTMENTS Appointments dc to avila russell, see reconciliation, physical therapy at [facility] ALLI BORJAS MD Nov 12, 2016 16:38
[2016-11-12 18:20] VITALS: BP 124/67; PULSE 68
--- NOTE | 2016-11-12 18:50 | DS ---
DATE OF ADMISSION: 11/05/2016 DATE OF DISCHARGE: 11/12/2016 REASON FOR ADMISSION: Low grade disability, failure to thrive. HOSPITAL COURSE: The patient is a 66-year-old male with past medical history of hypertension, histo ry of intravenous drug abuse in the past on methadone, history of left BKA, history of coronary tyrone ry disease, dyslipidemia, anxiety disorder, depression, mild dementia, hepatitis C who presented to [facility] due to grave disabilities. The patient cannot care for self. The gal ent recently was a resident of [facility]. In fact, he may be able to care for himself, but un fortunately, the patient has left AKA, he is confused, and needs more care. He presented to [facility]. In the ER, the patient's liver enzymes were slightly elevated. It was decid ed to admit the patient for further care. Upon admission, patient's medications were resumed. He w as found to have MRSA of the nares, which is likely colonization. The patient has no evidence of ac tive infection. He had episodes of constipation likely related to opioid use. DISPOSITION AND DISCHARGE MEDICATIONS: The patient will be now transferred to [facility] for further care with the following medications: 1. [place] 10/325 q.4h. p.r.n. 2. Norvasc 5 mg daily. 3. Vitamin C 500 mg daily. 4. Aspirin 81 mg daily. 5. Lipitor 80 mg at bedtime. 6. Coreg 6.25 b.i.d. 7. Colace 100 q.12. 8. Neurontin 100 mg t.i.d. 9. Hydralazine 25 q.6h. p.r.n. 10. Milk of magnesia daily p.r.n. 11. Methadone ____ mg daily. 12. Multivitamin 1 tab daily. 13. Bactroban ointment b.i.d. to the nares for 10 days. 14. Protonix 40 mg daily. 15. MiraLax 17 grams daily. 16. Senna 1 tab b.i.d. 17. Will also add Movantik 1 tab p.o. daily for opioid induced constipation. FINAL DIAGNOSES: 1. Grave disability. 2. Left [id number] amputation. 3. Peripheral vascular disease. 4. Hypertension. 5. Nicotine dependency, still smokes heavily. 6. Chronic pain. 7. History of intravenous drug abuse on methadone. 8. Mild anemia, likely hemodilution. 9. Transaminitis. 10. Hepatitis C. 11. Mild memory impairment, mild early dementia. 12. Constipation. 13. Dyslipidemia. 14. 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 CONDITION ON DISCHARGE: Fair. Case discussed with medical case worker in detail and he will be discharged to the snf facility . DIET: 2 g sodium. ACTIVITY: With physical therapy. Smoking cessation advised. Dictated By: ALLI KIRBY/LELIS Conf#: [id number] DID#: [id number] CC: VENTURA RUCKER DO;*[facility]*
[2016-11-12] MEDS ORDERED: SENNA TAB PO SCH (21:00)
== END 2016-11-12 19:20 | DRG 641 ==
LOC: E/R 18:10 → MS2 19:23
PROVIDERS: ADMIT Internal Medicine Nephrology; ATTEND Internal Medicine Nephrology
DX: R62.7 Adult failure to thrive (principal); Z89.612 Acquired absence of left leg above knee; G30.9 Alzheimer's disease, unspecified; G62.9 Polyneuropathy, unspecified; F02.80 Dementia in other diseases classified elsewhere, unspecified severity, without behavioral disturbance, psychotic disturbance, mood disturbance, and anxiety; I10 Essential (primary) hypertension; Z66 Do not resuscitate; Z22.322 Carrier or suspected carrier of Methicillin resistant Staphylococcus aureus; Z79.891 Long term (current) use of opiate analgesic; Z72.0 Tobacco use; G89.4 Chronic pain syndrome; K59.03 Drug induced constipation; T40.2X5A Adverse effect of other opioids, initial encounter; D64.9 Anemia, unspecified; B19.20 Unspecified viral hepatitis C without hepatic coma; I73.9 Peripheral vascular disease, unspecified
CPT/HCPCS: 36415; 71010; 80048; 80053; 83690; 83735; 84100; 84484; 85025; 85610; 85730; 86704; 86709; 86803; 87081; 87340; 93005; 97162; 97166; 97530; J1650; J7030; J7042